=== PATIENT | male | born 1995 ===

== ENCOUNTER 2025-02-22 17:59 | Inpatient (IN) | payer BC ==
[~2025-02-22] VITALS: Ht 175.3 cm; Wt 77.0 kg
[2025-02-22 19:00] VITALS: BP 140/97; PULSE 107; RESP 20; TEMP 97.1; O2SAT 97
[2025-02-22] MEDS ORDERED: ZOLPIDEM TARTRATE 10 MG TABLET PO PRN (19:00)
[2025-02-22 19:21] LABS: GLUCOMETER DEV NAME(LOC) POC.BV; POC SARS-COV2 AG, FIA NEGATIVE (NEGATIVE)
[2025-02-22] MEDS ORDERED: LORazepam 2 MG/ML VIAL ONE (21:32)
[2025-02-22] MEDS: LORazepam 2 MG/ML VIAL IM ONE (21:41)
[2025-02-22 22:18] VITALS: BP 126/99; RESP 18; TEMP 100.6; O2SAT 100
[2025-02-23] MEDS ORDERED: MAG HYDROX/ALUMINUM HYD/SIMETH ES 30 ML SUSPENSION UDCUP PO PRN (06:30)
[2025-02-23] MEDS ORDERED: ALBUTEROL SULFATE HFA 90 MCG/PUFF 8 GM INHALER IH PRN (06:30)
[2025-02-23] MEDS ORDERED: IBUPROFEN 400 MG TABLET PO PRN (06:30)
[2025-02-23] MEDS ORDERED: ACETAMINOPHEN 325 MG TABLET PO PRN (06:30)
[2025-02-23] MEDS ORDERED: ONDANSETRON 4 MG TABLET PO PRN (06:30)
[2025-02-23] MEDS ORDERED: PETROLATUM,WHITE 28 GM JELLY TP PRN (06:30)
[2025-02-23] MEDS ORDERED: NICOTINE 14 MG/24 HOUR PATCH TD PRN (06:30)
[2025-02-23] MEDS ORDERED: GuaiFENesin/D-METHORPHAN [SUGAR-FREE] 200-20MG/10 ML SYRUP UDCUP PO PRN (06:30)
[2025-02-23] MEDS ORDERED: MAGNESIUM HYDROXIDE SUSPENSION 30 ML UDCUP PO PRN (06:30)
[2025-02-23] MEDS ORDERED: DOCUSATE SODIUM 100 MG CAPSULE PO PRN (06:30)
[2025-02-23] MEDS ORDERED: LOPERAMIDE HCL 2 MG CAPSULE PO PRN (06:30)
[2025-02-23 07:45] LABS: APPEARANCE,URINE CLEAR (CLEAR); GLUCOSE, URINE (UA) NEGATIVE (NEGATIVE); LEUKOCYTE ESTERASE ,URINE NEGATIVE (NEGATIVE); NITRATE,URINE NEGATIVE (NEGATIVE); OCCULT BLOOD,URINE NEGATIVE (NEGATIVE); SPECIFIC GRAVITIY, URINE 1.003 (1.003-1.030)
[2025-02-23 09:00] VITALS: RESP 16
[2025-02-23 12:57] VITALS: BP 120/79; PULSE 64; RESP 16; TEMP 97.5; O2SAT 97
[2025-02-23 20:06] VITALS: BP 113/81; PULSE 97; RESP 16; TEMP 98.3; O2SAT 99
[2025-02-24 08:02] VITALS: BP 131/90; PULSE 95; RESP 16; TEMP 98.3; O2SAT 97
[2025-02-24 20:16] VITALS: BP_SYST 119; BP_SYST 138; BP_DIAS 90; PULSE 100; PULSE 70; RESP 15; RESP 17; TEMP 97.4; TEMP 98.2; O2SAT 99
[2025-02-25 08:09] VITALS: BP 123/91; PULSE 101; RESP 18; TEMP 97.9; O2SAT 95
== END 2025-02-25 15:29 | disposition home or self-care (01) | DRG 885 ==
LOC: B3A 18:54
PROVIDERS: ADMIT Psychiatry & Neurology Child & Adolescent Psychiatry; ATTEND Psychiatry & Neurology Child & Adolescent Psychiatry
PROC: GZ56ZZZ Individual Psychotherapy, Supportive (ICD-10-PCS; principal; 2025-02-23)
DX: F20.9 Schizophrenia, unspecified (principal); Z20.822 Contact with and (suspected) exposure to COVID-19; I10 Essential (primary) hypertension; R00.0 Tachycardia, unspecified
CPT/HCPCS: 81003; J1200; J1630; J2060